=== PATIENT | female | born 1995 | race Caucasian/White ===

== ENCOUNTER 2018-12-21 01:20 | Emergency (ER) | payer OTHER ==
[~2018-12-21] VITALS: Ht 167.6 cm; Wt 80.0 kg
--- NOTE | 2018-12-21 02:25 | NUR ---
pt sleeping in bed
--- NOTE | 2018-12-21 03:00 | NUR ---
PT SLEEPING. NAD. VSS
--- NOTE | 2018-12-21 04:10 | NUR ---
PT SLEEPING. NAD. VSS
--- NOTE | 2018-12-21 05:19 | NUR ---
PT SLEEPING. NAD. VSS
[2018-12-21 05:56] VITALS: BP 123/72
--- NOTE | 2018-12-21 06:13 | NUR ---
pt vomited after smelling vomit on her pants when she was getting dressed to leave. pt stated she has a weak stomach and the smell of vomit always makes her vomit.
== END 2018-12-21 06:00 | disposition home or self-care (01) ==
LOC: ED 05:46
DX: F10.120 Alcohol abuse with intoxication, uncomplicated (principal)
CPT/HCPCS: 99283